=== PATIENT | female | born 1975 | race Two or more races ===

== ENCOUNTER 2021-06-30 18:35 | Emergency (ER) | payer MEDICAID ==
[~2021-06-30] VITALS: Ht 160 cm; Wt 65.8 kg
[~2021-06-30 18:35] MED LIST: BENA20TA14 PO; OMEP20TA44 PO
[2021-06-30 19:43] LABS: Basophils # (auto) 0 10 ^3/uL (0-0.2); Eosinophils # (auto) 0 10 ^3/uL (0-0.8); Eosinophils % (auto) 0.6 % (0.0-7.0); Hemoglobin 12.4 g/dL (12.2-16.2); Lymphocytes # (auto) 2.4 10 ^3/uL (0.4-5.4); Monocytes # (auto) 0.4 10 ^3/uL (0-1.3); Monocytes % (auto) 7.6 % (0.0-12.0); Neutrophils % (auto) 46.1 % (37.0-80.0); Nucleated Red Blood Cells % 0.1 %
[2021-06-30 19:46] LABS: Basophils % (auto) 0.5 % (0.0-2.0); Hematocrit 35.4 % (36.0-46.0); Lymphocytes % (auto) 45.2 % (10.0-50.0); Mean Corpuscular Hemoglobin 34.6 pg (28.0-32.0); Mean Corpuscular Hgb Conc. 34.8 g/dL (32.0-36.0); Mean Corpuscular Volume 99.2 fL (80.0-100.0); Neutrophils # (auto) 2.4 10 ^3/uL (1.6-8.6); Red Blood Cells 3.57 10^6/uL (4.0-5.20); White Blood Cell 5.2 10^3/uL (4.4-10.8)
[2021-06-30 19:51] LABS: Potassium 3.7 mmol/L (3.5-5.1)
[2021-06-30 19:57] LABS: Albumin 3.4 g/dL (3.4-5.0); Calcium 8.4 mg/dL (8.5-10.1)
[2021-06-30 20:02] LABS: Bilirubin, Total 0.4 mg/dL (0.2-1.0); Total Protein 6.6 g/dL (6.4-8.2)
[2021-06-30] MEDS ORDERED: IOHEXOL 350 MG/ML 100ML IJ ONE (20:32)
[2021-07-01 00:05] LABS: Urine Bacteria NONE SEEN /hpf (None Seen); Urine Blood Negative /uL (Negative); Urine Specific Gravity 1.029 (1.001-1.035); Urine WBC 1 /hpf (0 - 5)
[2021-07-01 04:30] VITALS: BP 133/73
== END 2021-07-01 06:25 | disposition home or self-care (01) ==
LOC: ER 18:37
DX: R07.9 Chest pain, unspecified (principal); I10 Essential (primary) hypertension; E78.5 Hyperlipidemia, unspecified; Z90.49 Acquired absence of other specified parts of digestive tract; Z79.899 Other long term (current) drug therapy; Z88.0 Allergy status to penicillin; Z88.8 Allergy status to other drugs, medicaments and biological substances; Z20.822 Contact with and (suspected) exposure to COVID-19
CPT/HCPCS: 36415; 71275; 80053; 81001; 83880; 84484; 85025; 85379; 87426; 93005; 99285; Q9967